=== PATIENT | male | born 2000 | race Caucasian/White ===

== ENCOUNTER 2020-01-27 19:40 | Emergency (ER) | payer SELFPAY ==
[~2020-01-27] VITALS: Ht 177.8 cm; Wt 59.0 kg
[2020-01-27] MEDS ORDERED: SODIUM CHLORIDE 0.9% 1000ML 1,000 ML IV SCH ×2 (20:00→22:45)
[2020-01-27] MEDS ORDERED: SODIUM CHLORIDE 0.9% 1000ML 1,000 ML ONE (20:00)
--- NOTE | 2020-01-27 20:12 | Emergency Department Note ---
History of Present Illnes History of Present Illness Chief Complaint: Abdominal Complaints History of Present Illness This is a 19 year old male Chief Complaint Comment 19 Y/O MALE PT AAOX3 PRESENTS TO ED WITH ABDOMINAL PAIN, RECTAL BLEEDING/BLOOD IN FECES, N/V X2 DAYS. States he has bene diagnosed with UC but does not have insurance and is on no medications. Historian: Patient Arrival Mode: [employer] Required: No Onset (how long ago): day(s) Location: Rectal Quality: bleeding Radiation: Reports non-radiation Duration (how long): day(s) (2) Timing of current episode: constant Progression: worsening Chronicity: recurrent Context: Denies recent illness, Denies recent surgery Relieving factors: none Exacerbating factors: none Associated symptoms: Reports denies other symptoms Treatments prior to arrival: none Past Medical/Family History Physician Review I have reviewed the patient's past medical and family history. Any updates have been documented here. Past Medical History Recent Fever: No Clinical Suspicion of Infectio: No New/Unexplained Change in Ment: No Other Medical History: ULCERATIVE COLITIS Past Surgical History: None Social History Smoking Cessation: Never Smoker Counseling Performed: No Alcohol Use: None Any Illegal Drug Use: No Other Any Pre-Existing Lines (PICC,: No Review of Systems Review of Systems Constitutional: Reports no symptoms EENTM: Reports no symptoms Cardiovascular: Reports no symptoms Respiratory: Reports no symptoms Gastrointestinal: Reports as per HPI, Reports abdominal pain, Reports diarrhea, Reports other (Bloody stools) Genitourinary: Reports no symptoms Musculoskeletal: Reports no symptoms Integumentary: Reports no symptoms Neurological: Reports no symptoms Psychological: Reports no symptoms Endocrine: Reports no symptoms Hematological/Lymphatic: Reports no symptoms Physical Exam Related Data Allergies: Coded Allergies: No Known Allergies (Unverified , 01/27/20) Triage Vital Signs Vital Signs Date Time Temp Pulse Resp B/P (MAP) Pulse Ox O2 Delivery O2 Flow Rate FiO2 01/27/20 19:46 99.6 142 18 140/95 99 Room Air Vital signs reviewed: Yes Physical Exam CONSTITUTIONAL Constitutional: Present well-developed, Present well-nourished HENT HENT: Present normocephalic, Present atraumatic, Present oropharynx clear/moist, Present nose normal HENT L/R: Present left ext ear normal, Present right ext ear normal EYES Eyes: Reports PERRL, Reports conjunctivae normal NECK Neck: Present ROM normal PULMONARY Pulmonary: Present effort normal, Present breath sounds normal CARDIOVASCULAR Cardiovascular: Present regular rhythm, Present heart sounds normal, Present capillary refill normal, Present tachycardia GASTROINTESTINAL Abdominal: Present soft, Present nontender, Present bowel sounds normal GENITOURINARY Genitourinary: Present exam deferred SKIN Skin: Present warm, Present dry MUSCULOSKELETAL Musculoskeletal: Present ROM normal NEUROLOGICAL Neurological: Present alert, Present oriented x 3, Present no gross motor or sensory deficits PSYCHOLOGICAL Psychological: Present mood/affect normal, Present judgement normal Results Laboratory Lab results reviewed: Yes Imaging Imaging results reviewed: Yes Diagnostics Tests Diagnostic test(s) reviewed: Yes Assessment & Plan Medical Decision Making MDM 19-year-old male presents for bloody stools. He states stools are frankly bloody. He is diagnosed with ulcer colitis age 5 but has not been on any medications and does not have insurance and does not see a doctor. He states this current episode has been ongoing for last few days. Examination shows no significant abdominal tenderness, he is mildly tachycardic at 140 which resolved with fluids. Workup shows no significant anemia and CT abdomen and pelvis is consistent with inflammatory bowel disease. Urinalysis shows urinary tract infection for which he was given Rocephin and will be prescribed Keflex for home. I instructed him to follow-up with a setter up and a referral was placed for this. Prescription for Medrol Dosepak, Keflex, Zofran given at [facility]. Reassessment Reassessment time: 22:43 Reassessment Well appearing, NAD. Tachycardia improved Assessment & Plan Final Impression: (1) Inflammatory bowel disease (2) UTI (urinary tract infection) Depart Disposition: HOME, SELF-CARE Last Vital Signs Date Time Temp Pulse Resp B/P (MAP) Pulse Ox O2 Delivery O2 Flow Rate FiO2 01/27/20 19:46 99.6 142 18 140/95 99 Room Air Medications in the ED Sodium Chloride 1,000 ml @ 0 mls/hr Q0M IV ; Start 01/27/20 at 20:00; Stop 01/27/20 at 20:59 Sodium Chloride 1,000 ml @ ud STK-MED ONCE .ROUTE ; Start 01/27/20 at 20:00; Stop 01/27/20 at 19:54; Status DC FRANK KHAN MD Jan 27, 2020 20:12
[2020-01-27 20:25] LABS: BASOPHILS % 0.4 % (0.0-1.0); EOSINOPHILS % 0.5 % (0.0-6.0); HEMATOCRIT 49.7 % (38.2-49.6); HEMOGLOBIN 16.8 g/dL (14.0-18.0); LYMPHOCYTES # (AUTO) 1.2 (1.0-3.2); LYMPHOCYTES % 13.8 % (18.0-39.1); MEAN CORPUSCULAR HEMOGLOBIN 27.4 pg (28-32); MEAN CORPUSCULAR HGB CONC 33.8 g/dL (31-35); MEAN CORPUSCULAR VOLUME 80.9 fL (81-99); MONOCYTES # (AUTO) 1.6 (0.2-0.8); MONOCYTES % 18.3 % (4.4-11.3); NEUTROPHILS # (AUTO) 5.7 (2.1-6.9); NEUTROPHILS % 66.8 % (38.7-80.0); PLATELET COUNT 400 x10e3/uL (140-360); RED BLOOD COUNT 6.14 x10e6/uL (4.3-5.7); RED CELL DISTRIBUTION WIDTH 12.5 % (11.7-14.4)
[2020-01-27 20:31] LABS: BILIRUBIN,URINE SMALL (NEGATIVE); CLARITY,URINE CLOUDY (CLEAR); COLOR,URINE YELLOW (YELLOW); KETONES,URINE 2+ (NEGATIVE); LEUKOCYTE ESTERASE ,URINE NEGATIVE (NEGATIVE); NITRITE,URINE NEGATIVE (NEGATIVE); PROTEIN,URINE DIPSTICK >=300 (NEGATIVE); URINE UROBILINOGEN 0.2 mg/dL (0.2 - 1)
[2020-01-27 20:38] LABS: ALANINE AMINOTRANSFERASE 16 IU/L (0-55); ALBUMIN 5.2 g/dL (3.5-5.0); ALBUMIN/GLOBULIN RATIO 1.5 (0.8-2.0); ALKALINE PHOSPHATASE 87 IU/L (40-150); ANION GAP 18.3 mmol/L (8-16); BLOOD UREA NITROGEN 8 mg/dL (7-26); BUN/CREATININE RATIO 7 (6-25); CALCIUM 9.8 mg/dL (8.4-10.2); CARBON DIOXIDE 22 mmol/L (22-29); CHLORIDE 98 mmol/L (98-107); CREATININE, SERUM 1.21 mg/dL (0.72-1.25); EST GLOMERULAR FILTRATION RATE > 60 ML/MIN (60-); GLUCOSE 117 mg/dL (74-118); POTASSIUM 3.3 mmol/L (3.5-5.1); SODIUM 135 mmol/L (136-145)
[2020-01-27 20:42] LABS: BACTERIA,URINE MANY /HPF; EPITHELIAL CELLS,URINE FEW /LPF; MUCUS,URINE MANY (RARE); WBC,URINE (MAN) 21-50 /HPF (0-5)
[2020-01-27] MEDS ORDERED: SODIUM CHLORIDE 0.9% 50ML 50 ML ONE (21:11)
[2020-01-27] MEDS ORDERED: IOPAMIDOL 370 MG/ML 200 ML INFUS..BTL INJ ONE (21:11)
[2020-01-27] MEDS ORDERED: CEFTRIAXONE SOD 1 GM VIAL IV SCH (21:15)
[2020-01-27 21:38] LABS: AMPHETAMINES SCREEN,URINE NEGATIVE (NEGATIVE); BENZODIAZEPINES SCREEN,URINE NEGATIVE (NEGATIVE); PHENCYCLIDINE SCREEN,URINE NEGATIVE (NEGATIVE)
[2020-01-27 21:41] LABS: INR 1.06; PROTHROMBIN TIME 14.3 seconds (11.9-14.5)
--- NOTE | 2020-01-27 22:11 | Diagnostic Imaging Report ---
EXAM: CT Abdomen and Pelvis WITH contrast INDICATION: Abd pain, bloody diarrhea COMPARISON: TECHNIQUE: Abdomen and pelvis were scanned utilizing a multidetector helical scanner from the lung base to the pubic symphysis after administration of IV contrast. Coronal and sagittal reformations were obtained. Routine protocol was performed. Scan was performed when during portal venous phase. IV CONTRAST: 100 mL of Isovue 370 ORAL CONTRAST: None COMPLICATIONS: None FINDINGS: Exam is mildly limited due to lack of intra-abdominal fat. LINES and TUBES: None. LOWER THORAX: Unremarkable HEPATOBILIARY: No focal hepatic lesions. No biliary ductal dilation. GALLBLADDER: No radio-opaque stones or sludge. No wall thickening. SPLEEN: No splenomegaly. PANCREAS: No focal masses or ductal dilatation. ADRENALS: No adrenal nodules KIDNEYS/URETERS: Kidneys enhance symmetrically. No hydronephrosis No stones. 1.8 cm borderline simple fluid attenuating left renal cyst cystic lesion. GI TRACT: No abnormal distention, wall thickening, or evidence of bowel obstruction. Appendix is not clearly identified. There is however no fat stranding or adenopathy in the right lower quadrant to suggest appendicitis. The small and large bowel mucosa appears slightly hyperemic without significant thickening. PELVIC ORGANS/BLADDER: Unremarkable. LYMPH NODES: No lymphadenopathy. VESSELS: Unremarkable. PERITONEUM / RETROPERITONEUM: No free air or fluid. BONES: Unremarkable. IMPRESSION: 1. Lack of intra-abdominal fat mildly limits examination. Diffuse mild hyperenhancement of bowel mucosa may be physiologic or reactive to an underlying infectious/inflammatory process, such as enterocolitis. Appendix is not identified. Otherwise, no acute abdominopelvic process identified. 2. 1.8 cm cystic lesion in the midpole the left kidney measures slightly greater than simple fluid density, possible hemorrhagic cyst. Consider nonemergent outpatient follow-up renal protocol CT or MR for definite characterization. Signed by: Yonny Graff MD on 01/27/2020 10:07 PM
[2020-01-27] MEDS ORDERED: PREDNISONE 20 MG TAB PO ONE (22:30)
[2020-01-27] MEDS ORDERED: LACTATED RINGER'S 1,000 ML INJ ONE (23:00)
[2020-01-28 00:02] VITALS: BP 130/82
== END 2020-01-28 00:20 | disposition home or self-care (01) ==
LOC: ER 19:54
DX: K51.90 Ulcerative colitis, unspecified, without complications (principal); N39.0 Urinary tract infection, site not specified; R10.9 Unspecified abdominal pain
CPT/HCPCS: 36415; 74177; 80053; 80307; 81001; 83605; 83690; 85025; 85610; 86140; 86850; 86870; 86880; 86900; 86905; 87040; 87086; 93005; 99001; 99284; J0696; J7030; J7121; J7512; Q9967

== ENCOUNTER 2020-09-23 12:07 | Emergency (ER) | payer OTHER ==
[~2020-09-23] VITALS: Ht 177.8 cm; Wt 59.0 kg
[2020-09-23] MEDS ORDERED: ONDANSETRON HCL INJ 2MG/ML 2ML 2 MG/ML VIAL IV NR (12:45)
[2020-09-23] MEDS ORDERED: FENTANYL CITRATE/PF 100MCG/2 ML INJ IV PRN (12:45)
[2020-09-23] MEDS ORDERED: LACTATED RINGER'S 1,000 ML INJ ONE (12:45)
[2020-09-23] MEDS ORDERED: DEXAMETHASONE SOD PHOS 10 MG/1 ML VIAL IV ONE (12:45)
[2020-09-23 13:16] LABS: BASOPHILS % 0.5 % (0.0-1.0); EOSINOPHILS # (AUTO) 0.1 (0.0-0.4); EOSINOPHILS % 1.3 % (0.0-6.0); HEMATOCRIT 50.8 % (38.2-49.6); HEMOGLOBIN 17.5 g/dL (14.0-18.0); LYMPHOCYTES # (AUTO) 1.6 (1.0-3.2); LYMPHOCYTES % 25.9 % (18.0-39.1); MEAN CORPUSCULAR HGB CONC 34.4 g/dL (31-35); MEAN CORPUSCULAR VOLUME 81.2 fL (81-99); MONOCYTES # (AUTO) 1.4 (0.2-0.8); MONOCYTES % 21.7 % (4.4-11.3); NEUTROPHILS # (AUTO) 3.2 (2.1-6.9); NEUTROPHILS % 50.3 % (38.7-80.0); PLATELET COUNT 368 x10e3/uL (140-360); RED BLOOD COUNT 6.26 x10e6/uL (4.3-5.7); RED CELL DISTRIBUTION WIDTH 12.6 % (11.7-14.4)
[2020-09-23 13:39] LABS: ALANINE AMINOTRANSFERASE 10 IU/L (0-55); ALBUMIN 4.4 g/dL (3.5-5.0); ALBUMIN/GLOBULIN RATIO 1.1 (0.8-2.0); ALKALINE PHOSPHATASE 95 IU/L (40-150); ANION GAP 16.6 mmol/L (8-16); BLOOD UREA NITROGEN 9 mg/dL (7-26); BUN/CREATININE RATIO 9 (6-25); CALCIUM 9.6 mg/dL (8.4-10.2); CARBON DIOXIDE 25 mmol/L (22-29); CHLORIDE 100 mmol/L (98-107); CREATININE, SERUM 1.02 mg/dL (0.72-1.25); EST GLOMERULAR FILTRATION RATE > 60 ML/MIN (60-); GLUCOSE 94 mg/dL (74-118); POTASSIUM 3.6 mmol/L (3.5-5.1); SODIUM 138 mmol/L (136-145)
[2020-09-23 14:49] VITALS: BP 120/94
[2020-09-23 18:41] LABS: BAND NEUTROPHILS % (MANUAL) 34 %; EOSINOPHILS % (MANUAL) 3 % (0-7); LYMPHOCYTES % (MANUAL) 30 % (19-48); MONOCYTES % (MANUAL) 15 % (3.4-9.0); NEUTROPHILS % (MANUAL) 18 % (40-74)
[2020-09-23 18:42] LABS: PLATELET ESTIMATE ADEQUATE; PLATELET MORPHOLOGY COMMENT FEW GIANT; RBC MORPHOLOGY COMMENT NORMAL
== END 2020-09-23 14:51 | disposition home or self-care (01) ==
LOC: ER 13:24
DX: K63.9 Disease of intestine, unspecified (principal); R11.0 Nausea; R19.7 Diarrhea, unspecified
CPT/HCPCS: 36415; 80053; 83690; 85025; 99283; J1100; J2405; J3010; J7121

== ENCOUNTER 2024-01-30 16:21 | Emergency (ER) | payer OTHER ==
[~2024-01-30] VITALS: Ht 177.8 cm; Wt 59.0 kg
[2024-01-30 17:12] VITALS: PULSE 92; RESP 18; TEMP 98.8
[2024-01-30 17:50] LABS: BASOPHILS % 0.5 % (0.0-1.0); EOSINOPHILS # (AUTO) 0.3 (0.0-0.4); EOSINOPHILS % 4.2 % (0.0-6.0); HEMATOCRIT 44.6 % (38.2-49.6); HEMOGLOBIN 14.2 g/dL (14.0-18.0); LYMPHOCYTES # (AUTO) 1.9 (1.0-3.2); MEAN CORPUSCULAR HEMOGLOBIN 27.5 pg (28-32); MEAN CORPUSCULAR HGB CONC 31.8 g/dL (31-35); MEAN CORPUSCULAR VOLUME 86.4 fL (81-99); MONOCYTES # (AUTO) 0.5 (0.2-0.8); MONOCYTES % 7.8 % (4.4-11.3); NEUTROPHILS # (AUTO) 3.7 (2.1-6.9); NEUTROPHILS % 57.2 % (38.7-80.0); PLATELET COUNT 313 x10e3/uL (140-360); RED BLOOD COUNT 5.16 x10e6/uL (4.3-5.7); RED CELL DISTRIBUTION WIDTH 12.3 % (11.7-14.4); WHITE BLOOD COUNT 6.41 x10e3/uL (4.8-10.8)
[2024-01-30 18:05] LABS: ALANINE AMINOTRANSFERASE 13 IU/L (0-55); ALBUMIN 4.5 g/dL (3.5-5.0); ALBUMIN/GLOBULIN RATIO 1.4 (0.8-2.0); ALKALINE PHOSPHATASE 58 IU/L (40-150); ANION GAP 12.8 mmol/L (8-16); BILIRUBIN,TOTAL 0.4 mg/dL (0.2-1.2); BLOOD UREA NITROGEN 13 mg/dL (7-26); BUN/CREATININE RATIO 15 (6-25); CARBON DIOXIDE 25 mmol/L (22-29); CHLORIDE 105 mmol/L (98-107); CREATINE KINASE 136 IU/L (30-200); CREATININE, SERUM 0.88 mg/dL (0.72-1.25); EST GLOMERULAR FILTRATION RATE 124 ML/MIN (>=60); GLUCOSE 85 mg/dL (74-118); POTASSIUM 3.8 mmol/L (3.5-5.1); SODIUM 139 mmol/L (136-145); TOTAL PROTEIN 7.8 g/dL (6.5-8.1)
[2024-01-30 18:13] LABS: TROPONIN I < 0.001 ng/mL (0-0.300)
[2024-01-30 19:28] LABS: AMPHETAMINES SCREEN,URINE NEGATIVE (NEGATIVE); BENZODIAZEPINES SCREEN,URINE NEGATIVE (NEGATIVE); CANNABINOIDS SCREEN,URINE NEGATIVE (NEGATIVE); METHADONE SCREEN, URINE NEGATIVE (NEGATIVE); OPIATES SCREEN,URINE NEGATIVE (NEGATIVE); PHENCYCLIDINE SCREEN,URINE NEGATIVE (NEGATIVE)
[2024-01-30] MEDS ORDERED: HYDROXYZINE HCL25 MG PO (21:30)
[2024-01-30 21:31] VITALS: BP 129/84; PULSE 87; RESP 18; TEMP 98; O2SAT 100
== END 2024-01-30 21:38 | disposition home or self-care (01) ==
LOC: ER 17:33
DX: R20.2 Paresthesia of skin (principal); R07.89 Other chest pain; F41.9 Anxiety disorder, unspecified; Z87.19 Personal history of other diseases of the digestive system; F17.210 Nicotine dependence, cigarettes, uncomplicated
CPT/HCPCS: 36415; 71045; 80053; 80307; 82550; 84484; 85025; 93005; 99284

== ENCOUNTER 2024-09-08 10:13 | Emergency (ER) | payer OTHER ==
[~2024-09-08] VITALS: Ht 177.8 cm; Wt 58.5 kg
[~2024-09-08 10:13] MED LIST: HYDROXYZINE HCL25 MG PO
[2024-09-08] MEDS: METHYLPREDNISOLONE SOD SUCC 125 MG/2ML VIAL IV STA (11:23)
[2024-09-08] MEDS: SODIUM CHLORIDE 0.9% 1000ML 1,000 ML IV STA ×2 (11:23)
[2024-09-08] MEDS: Morphine 4mg INJECTION 4 MG/ML INJ IV STA (11:23)
[2024-09-08] MEDS: ONDANSETRON HCL INJ 2MG/ML 2ML 2 MG/ML VIAL IV STA (11:24)
[2024-09-08 11:35] LABS: BASOPHILS % 0.4 % (0.0-1.0); EOSINOPHILS # (AUTO) 0.1 (0.0-0.4); EOSINOPHILS % 0.7 % (0.0-6.0); HEMATOCRIT 51.9 % (38.2-49.6); HEMOGLOBIN 17.8 g/dL (14.0-18.0); LYMPHOCYTES # (AUTO) 0.9 (1.0-3.2); LYMPHOCYTES % 11.2 % (18.0-39.1); MEAN CORPUSCULAR HEMOGLOBIN 28.2 pg (28-32); MEAN CORPUSCULAR HGB CONC 34.3 g/dL (31-35); MEAN CORPUSCULAR VOLUME 82.1 fL (81-99); MONOCYTES # (AUTO) 1.6 (0.2-0.8); MONOCYTES % 19.6 % (4.4-11.3); NEUTROPHILS # (AUTO) 5.6 (2.1-6.9); NEUTROPHILS % 67.9 % (38.7-80.0); PLATELET COUNT 470 x10e3/uL (140-360); RED BLOOD COUNT 6.32 x10e6/uL (4.3-5.7); RED CELL DISTRIBUTION WIDTH 12.4 % (11.7-14.4); WHITE BLOOD COUNT 8.25 x10e3/uL (4.8-10.8)
[2024-09-08] MEDS: PROMETHAZINE 12.5MG/ NACL 0.9% 12.5 MG/50 ML BAG IV ONE (11:39)
[2024-09-08 11:42] LABS: INR 1.02
[2024-09-08 11:43] LABS: PARTIAL THROMBOPLASTIN TIME 40.5 seconds (23.8-35.5)
[2024-09-08 11:53] LABS: ALANINE AMINOTRANSFERASE 13 IU/L (0-55); ALBUMIN 4.3 g/dL (3.5-5.0); ALBUMIN/GLOBULIN RATIO 0.9 (0.8-2.0); ALKALINE PHOSPHATASE 75 IU/L (40-150); BILIRUBIN,TOTAL 0.4 mg/dL (0.2-1.2); BLOOD UREA NITROGEN 13 mg/dL (7-26); BUN/CREATININE RATIO 10 (6-25); CALCIUM 9.4 mg/dL (8.4-10.2); CARBON DIOXIDE 20 mmol/L (22-29); CHLORIDE 97 mmol/L (98-107); CREATININE, SERUM 1.32 mg/dL (0.72-1.25); EST GLOMERULAR FILTRATION RATE 77 ML/MIN (>=60); GLUCOSE 139 mg/dL (74-118); LIPASE 18 U/L (8-78); MAGNESIUM 1.9 MG/DL (1.3-2.1); SODIUM 138 mmol/L (136-145); TOTAL PROTEIN 9.1 g/dL (6.5-8.1)
[2024-09-08 12:18] LABS: TROPONIN I < 0.001 ng/mL (0-0.300)
[2024-09-08] MEDS ORDERED: IOPAMIDOL 370 MG/ML 100 ML INFUS..BTL INJ ONE (12:21)
[2024-09-08] MEDS ORDERED: FLUORESCEIN SOD(OPTH) 1 MG STRP ONE (12:31)
[2024-09-08] MEDS ORDERED: TOBRAMYCIN 0.3% OPTH OINT 3.5 GM TUBE ONE (12:31)
[2024-09-08] MEDS ORDERED: TETRACAINE HCL 0.5% OPTH SOLN 4 ML BTL ONE (12:31)
[2024-09-08 13:17] VITALS: PULSE 94; RESP 16; TEMP 98.2; O2SAT 99
[2024-09-08] MEDS ORDERED: PHENERGAN SUPP25 MG PR (13:19)
[2024-09-08] MEDS ORDERED: ONDANSETRON ODT4 MG PO (13:19)
[2024-09-08] MEDS ORDERED: DICYCLOMINE HCL20 MG PO (13:19)
[2024-09-13] MEDS ORDERED: BUDESONIDE EC3 MG PO (11:13)
== END 2024-09-08 13:26 | disposition home or self-care (01) ==
LOC: ER 10:26
DX: R11.2 Nausea with vomiting, unspecified (principal); K63.89 Other specified diseases of intestine; R10.9 Unspecified abdominal pain
CPT/HCPCS: 36415; 71045; 74177; 80053; 83690; 83735; 84484; 85025; 85610; 85730; 93005; 99284; J2270; J2405; J2470; J2550; J2919; J7030; Q9967

== ENCOUNTER 2024-09-09 16:32 | Inpatient (IN) | payer OTHER ==
[~2024-09-09] VITALS: Ht 177.8 cm; Wt 58.5 kg
[~2024-09-09 16:32] MED LIST changes: +DICYCLOMINE HCL20 MG PO; +ONDANSETRON ODT4 MG PO; +PHENERGAN SUPP25 MG PR
[2024-09-09 17:00] VITALS: TEMP 98.4
[2024-09-09 17:34] LABS: BASOPHILS % 0.3 % (0.0-1.0); EOSINOPHILS # (AUTO) 0.3 (0.0-0.4); EOSINOPHILS % 2.4 % (0.0-6.0); HEMATOCRIT 46.7 % (38.2-49.6); HEMOGLOBIN 16.4 g/dL (14.0-18.0); LYMPHOCYTES # (AUTO) 1.5 (1.0-3.2); LYMPHOCYTES % 13.4 % (18.0-39.1); MEAN CORPUSCULAR HEMOGLOBIN 28.7 pg (28-32); MEAN CORPUSCULAR HGB CONC 35.1 g/dL (31-35); MEAN CORPUSCULAR VOLUME 81.8 fL (81-99); MONOCYTES # (AUTO) 2.3 (0.2-0.8); MONOCYTES % 20.3 % (4.4-11.3); NEUTROPHILS # (AUTO) 6.8 (2.1-6.9); NEUTROPHILS % 61.3 % (38.7-80.0); PLATELET COUNT 426 x10e3/uL (140-360); RED BLOOD COUNT 5.71 x10e6/uL (4.3-5.7); RED CELL DISTRIBUTION WIDTH 12.8 % (11.7-14.4); WHITE BLOOD COUNT 11.11 x10e3/uL (4.8-10.8)
[2024-09-09 17:56] LABS: ALBUMIN 3.7 g/dL (3.5-5.0); ALBUMIN/GLOBULIN RATIO 0.9 (0.8-2.0); ANION GAP 20.9 mmol/L (8-16); BILIRUBIN,TOTAL 0.3 mg/dL (0.2-1.2); CALCIUM 8.9 mg/dL (8.4-10.2); CREATININE, SERUM 1.04 mg/dL (0.72-1.25); TOTAL PROTEIN 7.7 g/dL (6.5-8.1)
[2024-09-09] MEDS: ONDANSETRON HCL INJ 2MG/ML 2ML 2 MG/ML VIAL IV STA (17:57)
[2024-09-09] MEDS: PROMETHAZINE 12.5MG/ NACL 0.9% 12.5 MG/50 ML BAG IV ONE (17:57)
[2024-09-09] MEDS: SODIUM CHLORIDE 0.9% 1000ML 1,000 ML IV SCH ×3 (18:00→18:57)
[2024-09-09 18:10] LABS: POTASSIUM 2.9 mmol/L (3.5-5.1)
[2024-09-09 18:13] LABS: FREE THYROXINE INDEX 2.9329 (1.4-3.8); T3 UPTAKE 20.86 % (22.5-37.0); T4 (THYROXINE) 14.06 ug/dL (4.5-10.9); THYROID STIMULATING HORMONE 2.507 uIU/mL (0.350-4.940)
[2024-09-09] MEDS ORDERED: ONDANSETRON HCL INJ 2MG/ML 2ML 2 MG/ML VIAL IV PRN (18:30)
[2024-09-09] MEDS: POTASSIUM CHLORIDE 20MEQ/100ML 100 ML IV STA (18:58)
[2024-09-09] MEDS: HALOPERIDOL LACTATE 5 MG/ML VIAL IV ONE (18:58)
[2024-09-09 20:09] LABS: BAND NEUTROPHILS % (MANUAL) 36 %; EOSINOPHILS % (MANUAL) 2 % (0-7); LYMPHOCYTES % (MANUAL) 17 % (19-48); METAMYELOCYTES % (MANUAL) 7 % (0-0); MONOCYTES % (MANUAL) 20 % (3.4-9.0); NEUTROPHILS % (MANUAL) 12 % (40-74); REACTIVE LYMPHOCYTES 6
[2024-09-09 20:13] VITALS: PULSE 108; RESP 16
[2024-09-09 20:31] LABS: BILIRUBIN,URINE SMALL (NEGATIVE); CLARITY,URINE HAZY (CLEAR); COLOR,URINE AMBER (YELLOW); GLUCOSE, URINE NEGATIVE (NEGATIVE); KETONES,URINE 1+ (NEGATIVE); LEUKOCYTE ESTERASE ,URINE NEGATIVE (NEGATIVE); NITRITE,URINE NEGATIVE (NEGATIVE); PH,URINE 6 (5 - 7); PROTEIN,URINE DIPSTICK 2+ (NEGATIVE); URINE UROBILINOGEN 0.2 mg/dL (0.2 - 1)
[2024-09-09 20:32] LABS: AMPHETAMINES SCREEN,URINE NEGATIVE (NEGATIVE); BENZODIAZEPINES SCREEN,URINE NEGATIVE (NEGATIVE); CANNABINOIDS SCREEN,URINE NEGATIVE (NEGATIVE); COCAINE SCREEN,URINE NEGATIVE (NEGATIVE); METHADONE SCREEN, URINE NEGATIVE (NEGATIVE); OPIATES SCREEN,URINE NEGATIVE (NEGATIVE); PHENCYCLIDINE SCREEN,URINE NEGATIVE (NEGATIVE)
[2024-09-09 20:47] VITALS: PULSE 107; RESP 16; O2SAT 99
[2024-09-09 20:47] LABS: PLATELET ESTIMATE ADEQUATE; PLATELET MORPHOLOGY COMMENT NORMAL; RBC MORPHOLOGY COMMENT NORMAL
[2024-09-09 20:50] LABS: WBC,URINE (MAN) 0-5 /HPF (0-5)
[2024-09-09 20:52] LABS: BACTERIA,URINE FEW /HPF
[2024-09-09 20:53] LABS: AMMONIUM BIURATE CRYSTALS,UR MANY; MUCUS,URINE MANY
[2024-09-09 21:28] VITALS: BP 115/70; PULSE 107; RESP 16; O2SAT 99
[2024-09-09 21:32] VITALS: BP 115/70; PULSE 107; RESP 16; O2SAT 99
[2024-09-09 23:12] VITALS: BP 112/68; PULSE 105; RESP 18; TEMP 98.1; O2SAT 99
[2024-09-10] VITALS (7 sets, daily range): BP systolic 106–115; BP diastolic 59–72; PULSE 82–95; RESP 17–20; TEMP 97.9–98.7; O2SAT 97–100
[2024-09-10] MEDS: POTASSIUM CHLORIDE 20MEQ/100ML 100 ML IV ONE (00:32)
[2024-09-10] MEDS: METOCLOPRAMIDE HCL 10 MG/2ML VIAL IV SCH (00:34)
[2024-09-10] MEDS: MESALAMINE 1,000 MG SUPP RC ONE (02:38)
[2024-09-10] MEDS: DICYCLOMINE HCL 20 MG TAB PO ONE (02:38)
[2024-09-10] MEDS ORDERED: BUDESONIDE EC3 MG PO (02:52)
[2024-09-10] MEDS ORDERED: SULFASALAZINE500 MG PO (02:52)
[2024-09-10 03:57] LABS: WBC,FECAL (FECAL LACTOFERRIN) POSITIVE (NEGATIVE)
[2024-09-10 04:51] LABS: CDIFF AG QUIK CHEK NEGATIVE (NEGATIVE); CDIFF TOX QUIK CHEK NEGATIVE (NEGATIVE)
[2024-09-10 05:49] LABS: BASOPHILS % 0.2 % (0.0-1.0); EOSINOPHILS # (AUTO) 0.6 (0.0-0.4); HEMATOCRIT 36.8 % (38.2-49.6); HEMOGLOBIN 12.6 g/dL (14.0-18.0); LYMPHOCYTES # (AUTO) 1.6 (1.0-3.2); LYMPHOCYTES % 17.7 % (18.0-39.1); MEAN CORPUSCULAR HEMOGLOBIN 28.4 pg (28-32); MEAN CORPUSCULAR HGB CONC 34.2 g/dL (31-35); MEAN CORPUSCULAR VOLUME 83.1 fL (81-99); NEUTROPHILS # (AUTO) 4.6 (2.1-6.9); NEUTROPHILS % 50.2 % (38.7-80.0); PLATELET COUNT 316 x10e3/uL (140-360); RED BLOOD COUNT 4.43 x10e6/uL (4.3-5.7); RED CELL DISTRIBUTION WIDTH 12.9 % (11.7-14.4); WHITE BLOOD COUNT 9.21 x10e3/uL (4.8-10.8)
[2024-09-10 06:20] LABS: ALBUMIN 2.6 g/dL (3.5-5.0); ANION GAP 11.2 mmol/L (8-16); BILIRUBIN,TOTAL 0.2 mg/dL (0.2-1.2); CALCIUM 7.4 mg/dL (8.4-10.2); CREATININE, SERUM 0.7 mg/dL (0.72-1.25); TOTAL PROTEIN 5.2 g/dL (6.5-8.1)
[2024-09-10 06:21] LABS: POTASSIUM 3.2 mmol/L (3.5-5.1)
[2024-09-10 08:45] LABS: BAND NEUTROPHILS % (MANUAL) 3 %; EOSINOPHILS % (MANUAL) 5 % (0-7); LYMPHOCYTES % (MANUAL) 15 % (19-48); METAMYELOCYTES % (MANUAL) 4 % (0-0); MONOCYTES % (MANUAL) 19 % (3.4-9.0); MYELOCYTES % (MANUAL) 2 % (0-0); NEUTROPHILS % (MANUAL) 52 % (40-74); PLATELET ESTIMATE ADEQUATE; PLATELET MORPHOLOGY COMMENT NORMAL; RBC MORPHOLOGY COMMENT NORMAL
[2024-09-10 08:48] LABS: TOXIC GRANULATION SLIGHT
[2024-09-10] MEDS: DICYCLOMINE HCL 20 MG TAB PO SCH (09:20)
[2024-09-10] MEDS: MESALAMINE 400 MG CAP PO SCH (09:22)
[2024-09-10] MEDS: POTASSIUM CHLORIDE 10MEQ EA PO ONE (15:32)
[2024-09-10] MEDS: PROMETHAZINE 12.5MG/ NACL 0.9% 12.5 MG/50 ML BAG IV PRN (19:07)
[2024-09-10] MEDS ORDERED: ACETAMINOPHEN 325 MG TAB PO PRN (21:15)
[2024-09-10] MEDS: MESALAMINE 1,000 MG SUPP RC SCH (22:47)
[2024-09-11] VITALS (9 sets, daily range): BP systolic 104–122; BP diastolic 70–78; PULSE 73–89; RESP 16–20; TEMP 97.7–98.5; O2SAT 95–100
[2024-09-11] MEDS: POTASSIUM CHLORIDE 10MEQ EA PO STA (03:58)
[2024-09-11 07:15] LABS: BASOPHILS % 0.2 % (0.0-1.0); EOSINOPHILS # (AUTO) 0.3 (0.0-0.4); EOSINOPHILS % 3.1 % (0.0-6.0); HEMATOCRIT 40.1 % (38.2-49.6); HEMOGLOBIN 13.5 g/dL (14.0-18.0); LYMPHOCYTES # (AUTO) 1.9 (1.0-3.2); MEAN CORPUSCULAR HEMOGLOBIN 28.4 pg (28-32); MEAN CORPUSCULAR HGB CONC 33.7 g/dL (31-35); MEAN CORPUSCULAR VOLUME 84.4 fL (81-99); MONOCYTES # (AUTO) 2.3 (0.2-0.8); NEUTROPHILS # (AUTO) 4.4 (2.1-6.9); NEUTROPHILS % 45.5 % (38.7-80.0); PLATELET COUNT 335 x10e3/uL (140-360); RED BLOOD COUNT 4.75 x10e6/uL (4.3-5.7); RED CELL DISTRIBUTION WIDTH 12.5 % (11.7-14.4); WHITE BLOOD COUNT 9.74 x10e3/uL (4.8-10.8)
[2024-09-11 07:40] LABS: ALBUMIN 2.8 g/dL (3.5-5.0); ALBUMIN/GLOBULIN RATIO 0.9 (0.8-2.0); ANION GAP 14.4 mmol/L (8-16); BILIRUBIN,TOTAL 0.2 mg/dL (0.2-1.2); CALCIUM 7.8 mg/dL (8.4-10.2); CREATININE, SERUM 0.7 mg/dL (0.72-1.25); MAGNESIUM 1.8 MG/DL (1.3-2.1); TOTAL PROTEIN 5.8 g/dL (6.5-8.1)
[2024-09-11 07:42] LABS: POTASSIUM 3.4 mmol/L (3.5-5.1)
[2024-09-11 09:35] LABS: BAND NEUTROPHILS % (MANUAL) 7 %; EOSINOPHILS % (MANUAL) 3 % (0-7); LYMPHOCYTES % (MANUAL) 19 % (19-48); METAMYELOCYTES % (MANUAL) 2 % (0-0); MONOCYTES % (MANUAL) 12 % (3.4-9.0); MYELOCYTES % (MANUAL) 6 % (0-0); NEUTROPHILS % (MANUAL) 47 % (40-74); PLATELET ESTIMATE ADEQUATE; PLATELET MORPHOLOGY COMMENT NORMAL; REACTIVE LYMPHOCYTES 4
[2024-09-11] MEDS: POTASSIUM CHLORIDE 10MEQ EA PO ONE (13:29)
[2024-09-12] VITALS (8 sets, daily range): BP systolic 103–112; BP diastolic 59–72; PULSE 71–101; RESP 16–18; TEMP 97.7–98.6; O2SAT 97–100
[2024-09-12] MEDS: METHYLPREDNISOLONE SOD SUCC 125 MG/2ML VIAL IV STA (00:33)
[2024-09-12 05:49] LABS: BASOPHILS % 0.2 % (0.0-1.0); EOSINOPHILS # (AUTO) 0.1 (0.0-0.4); EOSINOPHILS % 0.6 % (0.0-6.0); HEMATOCRIT 39.7 % (38.2-49.6); HEMOGLOBIN 13.9 g/dL (14.0-18.0); LYMPHOCYTES # (AUTO) 1.2 (1.0-3.2); LYMPHOCYTES % 14.3 % (18.0-39.1); MEAN CORPUSCULAR HEMOGLOBIN 28.6 pg (28-32); MEAN CORPUSCULAR VOLUME 81.7 fL (81-99); MONOCYTES # (AUTO) 0.5 (0.2-0.8); MONOCYTES % 6.1 % (4.4-11.3); NEUTROPHILS # (AUTO) 5.6 (2.1-6.9); NEUTROPHILS % 65.9 % (38.7-80.0); PLATELET COUNT 356 x10e3/uL (140-360); RED BLOOD COUNT 4.86 x10e6/uL (4.3-5.7); RED CELL DISTRIBUTION WIDTH 12.5 % (11.7-14.4); WHITE BLOOD COUNT 8.42 x10e3/uL (4.8-10.8)
[2024-09-12 06:24] LABS: ALBUMIN 2.9 g/dL (3.5-5.0); ALBUMIN/GLOBULIN RATIO 0.9 (0.8-2.0); BILIRUBIN,TOTAL 0.2 mg/dL (0.2-1.2); CALCIUM 8.3 mg/dL (8.4-10.2); CREATININE, SERUM 0.75 mg/dL (0.72-1.25); MAGNESIUM 1.9 MG/DL (1.3-2.1); TOTAL PROTEIN 6.1 g/dL (6.5-8.1)
[2024-09-12] MEDS: METHYLPREDNISOLONE SOD SUCC 40 MG/ML VIAL 1ML IV SCH (06:29)
[2024-09-13 03:36] VITALS: PULSE 81; RESP 18; TEMP 97.9; O2SAT 100
[2024-09-13 04:00] VITALS: BP 106/62
[2024-09-13 05:50] LABS: BASOPHILS % 0.2 % (0.0-1.0); HEMATOCRIT 36.5 % (38.2-49.6); HEMOGLOBIN 12.9 g/dL (14.0-18.0); LYMPHOCYTES # (AUTO) 1.7 (1.0-3.2); LYMPHOCYTES % 13.4 % (18.0-39.1); MEAN CORPUSCULAR HEMOGLOBIN 28.3 pg (28-32); MEAN CORPUSCULAR HGB CONC 35.3 g/dL (31-35); MONOCYTES # (AUTO) 1.1 (0.2-0.8); MONOCYTES % 8.3 % (4.4-11.3); NEUTROPHILS # (AUTO) 8.7 (2.1-6.9); NEUTROPHILS % 68.9 % (38.7-80.0); PLATELET COUNT 372 x10e3/uL (140-360); RED BLOOD COUNT 4.56 x10e6/uL (4.3-5.7); RED CELL DISTRIBUTION WIDTH 12.3 % (11.7-14.4); WHITE BLOOD COUNT 12.61 x10e3/uL (4.8-10.8)
[2024-09-13 06:20] LABS: ANION GAP 13.5 mmol/L (8-16); CALCIUM 8.4 mg/dL (8.4-10.2); CREATININE, SERUM 0.68 mg/dL (0.72-1.25); POTASSIUM 3.5 mmol/L (3.5-5.1)
[2024-09-13 07:32] VITALS: BP 104/66; PULSE 80; RESP 16; TEMP 98.6; O2SAT 99
[2024-09-13] MEDS ORDERED: ONDANSETRON HCL 4 MG ORAL DISINTEGRATING TAB PO PRN (09:15)
[2024-09-13 11:04] VITALS: BP 105/64; PULSE 84; RESP 18; TEMP 97.9; O2SAT 100
[2024-09-13] MEDS ORDERED: BUDESONIDE EC3 MG PO (11:13)
[2024-09-13 13:11] LABS: BAND NEUTROPHILS % (MANUAL) 4 %; LYMPHOCYTES % (MANUAL) 14 % (19-48); MONOCYTES % (MANUAL) 9 % (3.4-9.0); NEUTROPHILS % (MANUAL) 73 % (40-74); PLATELET ESTIMATE ADEQUATE; PLATELET MORPHOLOGY COMMENT NORMAL; RBC MORPHOLOGY COMMENT NORMAL
[2024-09-13 14:11] LABS: ENDOMYSIAL ANTIBODIES, IGA Negative (Negative)
[2024-09-13 14:47] LABS: IMMUNOGLOBULIN A 135 mg/dL (90-386); TISSUE TRANSGLUTAMINASE IGA AB <2 U/mL (0-3)
== END 2024-09-13 12:45 | disposition home or self-care (01) | DRG 387 ==
LOC: ER 18:18 → ERHOLD 18:32 → MED/SURG3 20:56
PROVIDERS: ADMIT Internal Medicine; ATTEND Internal Medicine
DX: K51.911 Ulcerative colitis, unspecified with rectal bleeding (principal); E87.6 Hypokalemia; R11.2 Nausea with vomiting, unspecified; E86.0 Dehydration; R15.2 Fecal urgency; R15.9 Full incontinence of feces; F64.0 Transsexualism
CPT/HCPCS: 36415; 80048; 80053; 80307; 81001; 82784; 83516; 83630; 83735; 83993; 84436; 84443; 84479; 85025; 86140; 86256; 87045; 87177; 87324; 87449; 93005; 94799; 99252; 99284; J1630; J2405; J2470; J2550; J2765; J2919; J3480; J7030